=== PATIENT | male | born 1960 | race Caucasian/White ===

== ENCOUNTER 2019-01-13 13:29 | Emergency (ER) | payer OTHER, SELFPAY ==
[2019-01-13 13:29] VITALS: BP 131/68; PULSE 98; RESP 16; TEMP 37.3; O2SAT 98; BMI 24.7
[2019-01-13 13:53] VITALS: TEMP 37.3
--- NOTE | 2019-01-13 14:23 | ED.DCSUM_ITS ---
- ER Visit Summary Date of Service: 01/13/19 Chief Complaint: Cough and fever History of Present Illness: The patient is a 58 M who states that last night he suddenly felt ill. He notes a T-max of 102. He notes a dry cough headache myalgias and slight nausea. No rashes. He has been using Motrin to keep the fever down. Physical Examination: Afebrile vital signs are stable Gen: Well-nourished well-developed patient appears sickly but not ill Head: Normocephalic atraumatic Eyes: Perrl EOMI ENT: TMs clear no rhinorrhea moist mucous membranes Neck: Supple no lymphadenopathy no JVD nontender CVS: Regular rate rhythm no murmurs normal S1-S2 Respiratory: No distress clear to auscultation bilaterally chest nontender Abdomen: Soft nontender nondistended normal bowel sounds no masses Back: Nontender Extremity: Nontender no edema Skin: Normal color no rash Neuro: alert orientated ?3 CN II-XII intact normal strength sensation reflexes gait cerebellar Psych: Normal affect normal mood Emergency Department Course and Treatment: Clinically this patient has the flu. I will write for Tamiflu we did discuss risk benefits of this medicine. Continued fever control. Warned of the risk of dehydration and pneumonia. Impression: 1. Influenza This note was generated with [employer] dictation software. It may contain incorrect words, spelling, and punctuation that were not noted in review of the chart prior to signing ED Disposition - Plan for ED Patient: Disposition: Home or Assisted Living Instructions: ED Flu Prescriptions: Oseltamivir Phosphate [Tamiflu] 75 mg PO BID #10 cap Referrals: Abdirahman Alvarez MD [Primary Care Provider] - As Needed
== END 2019-01-13 14:36 | disposition home or self-care (01) ==
LOC: ED 14:30
PROVIDERS: Emergency Provider Emergency Medicine; Family Provider Family Medicine; PCP Family Medicine
DX: J11.1 Influenza due to unidentified influenza virus with other respiratory manifestations (principal)
CPT/HCPCS: 99282

== ENCOUNTER 2021-12-18 14:32 | Emergency (ER) | payer OTHER, SELFPAY ==
--- NOTE | 2021-12-18 18:24 | EDS_ITS ---
DATE OF SERVICE 12/18/21 CHIEF COMPLAINT: Forehead laceration. HISTORY OF PRESENT ILLNESS: This patient is a 61-year-old male who presents with a forehead laceration that occurred today. The patient states that he was walking and hit his head against a piece of sheet metal. The patient states that the bleeding lasted for several minutes. The patient states that he has some burning pain in his forehead. The patient states that it is worse with movement. The patient denies any paresthesias or weakness. The patient denies any loss of consciousness. The patient is unsure of his last tetanus. PAST MEDICAL HISTORY: Denies. PAST SURGICAL HISTORY: Denies. CURRENT MEDICATIONS: None. ALLERGIES: No known drug allergies. SOCIAL HISTORY: The patient denies smoking or alcohol or drug use. REVIEW OF SYSTEMS: GENERAL: The patient denies any fevers or chills. EYES: The patient denies blurry vision or diplopia. ENT: The patient denies any sore throat or rhinorrhea. CARDIOVASCULAR: Denies chest pain or palpitations. RESPIRATORY: The patient denies any shortness of breath or cough. GI: The patient denies any nausea or vomiting. : The patient denies dysuria or hematuria. MUSCULOSKELETAL: The patient denies any neck pain or back pain. SKIN: The patient denies any rash or abscess. NEUROLOGIC: The patient admits to a mild headache. The patient denies any paresthesias or weakness. ALLERGIES: The patient denies hives or swelling. PHYSICAL EXAMINATION: GENERAL: The patient is in no acute distress. VITAL SIGNS: Stable, afebrile. SKIN: Warm and dry. There is a 5 cm full-thickness curvilinear laceration over the right forehead. There is moderate gapping of the wound margins. There is mild bleeding noted. There is no bony crepitus or step-off. There is no foreign body noted. NEUROLOGIC: Cranial nerves II-XII are intact. Strength is 5/5 bilaterally in upper and lower extremities. There are no sensory deficits noted. GCS is 15. EMERGENCY DEPARTMENT COURSE AND MEDICAL DECISION MAKING: The patient was given tetanus booster. The wound was cleaned and irrigated with copious amounts of normal saline. The wound was anesthetized with 1% lidocaine with epinephrine locally. The wound was closed with 8 simple interrupted 5-0 Nylon sutures under sterile technique. The patient tolerated the procedure well. The wound was cleaned and dressed with Bacitracin dressing applied. IMPRESSION: Right forehead laceration. DISPOSITION/PLAN: The patient was instructed to follow up with his primary care physician in 5-7 days for wound recheck and suture removal. The patient understood and was agreeable with the plan. All questions were answered. The patient was discharged in stable condition.
== END 2021-12-18 18:48 | disposition home or self-care (01) ==
PROVIDERS: Emergency Provider Emergency Medicine; Visit Provider Emergency Medicine
DX: S01.81XA Laceration without foreign body of other part of head, initial encounter (principal); W22.09XA Striking against other stationary object, initial encounter; Y93.01 Activity, walking, marching and hiking; Y92.9 Unspecified place or not applicable; Z23 Encounter for immunization
CPT/HCPCS: 12013; 90471; 99284